=== PATIENT | female | born 1980 | race Caucasian/White ===

== ENCOUNTER 2021-10-28 23:35 | Emergency (ER) | payer SELFPAY ==
[2021-10-29] MEDS ORDERED: ACETAMINOPHEN 500 MG TAB ONE (00:08)
[2021-10-29 00:56] LABS: SARS-COV-2 RT PCR NEGATIVE (NEGATIVE)
[2021-10-29 01:23] LABS: Absolute Lymphocytes (CBC) 1.5 K/uL (0.7-4.9); Hematocrit 36.3 % (36.0-45.0); Lymphocytes % 11.7 % (15.3-44.8); MPV 9.1 fL (7.6-11.3); RBC Red Blood Cell Count 4.27 M/uL (3.86-4.86)
[2021-10-29 01:24] LABS: Protime INR 1.23
[2021-10-29] MEDS ORDERED: NA CHLORIDE 0.9% 2,000 ML ONE (01:25)
[2021-10-29] MEDS ORDERED: CEFTRIAXONE 1000 MG/VIAL ONE (01:35)
[2021-10-29] MEDS ORDERED: NA CHLORIDE 0.9% 50 ML ONE (01:36)
[2021-10-29 01:47] LABS: Urine Blood 2+ (Negative); Urine Glucose Negative (Negative); Urine Protein 2+ (Negative)
[2021-10-29 01:52] LABS: ALT/SGPT 85 U/L (12-78); AST/SGOT 42 U/L (15-37); Albumin 2.6 g/dL (3.4-5.0); Alkaline Phosphatase 182 U/L (45-117); Amylase 43 U/L (25-115); BUN Blood Urea Nitrogen 6 mg/dL (7-18); Bicarbonate 22 mmol/L (21-32); Bilirubin Direct 0.2 mg/dL (0-0.2); Bilirubin Total 0.5 mg/dL (0.2-1.0); Creatine Phosphokinase 24 U/L (26-192); Glucose Level 131 mg/dL (74-106); Lipase 96 U/L (73-393); Protein, Total 7.4 g/dL (6.4-8.2); Sodium Level 130 mmol/L (136-145)
[2021-10-29 01:53] LABS: CKMB Creatine Kinase MB < 1.0 ng/mL (1.0-3.6)
[2021-10-29 02:11] LABS: Urine Bacteria >50 /HPF (<20); Urine RBC <5 /HPF (NONE SEEN); Urine Urothelial Cells <5 /HPF (NONE SEEN)
[2021-10-29 02:15] LABS: Blood Morphology Comment NOT SEEN (NOT SEEN); Platelet Estimate ADEQ
--- NOTE | 2021-10-29 03:58 | EDPHYS ---
Physician Documentation [facility] Name: Nguyen Sepulveda Age: 41 yrs Sex: Female : 1980 Arrival Date: 10/28/2021 Time: 23:38 Bed 13 Private MD: ED Physician Ti Segura HPI: 10/29 03:44 This 41 yrs old Female presents to ER via Wheelchair with complaints of Head kdr Injury-Adult. 03:44 The patient or guardian reports pain. kdr 03:45 Patient states that she was hit on the head by a assembler metal building few days ago. She kdr indicated that she was working on a shelving project and had knelt down on the ground when the assembler metal building fell off the upper shelf hitting her in the head. She denies LOC. Since then she has had a headache and feels like the top of her head is going to pop off. She is also developed a febrile illness in the last few days.. Onset: The symptoms/episode began/occurred suddenly, 3 day(s) ago. Severity of symptoms: At their worst the symptoms were mild in the emergency department the symptoms are unchanged. The patient has not experienced similar symptoms in the past. Historical: - Allergies: 10/28 23:52 No Known Allergies; sm5 - Immunization history:: Client reports having NOT received the Covid vaccine. - Social history:: Smoking status: Patient reports the use of cigarette tobacco products, smokes one-half pack cigarettes per day. ROS: 10/29 03:45 Constitutional: Negative for objective fever, weight loss, she does states she has had kdr subjective fever and chills Eyes: Negative for injury, pain, redness, and discharge, Neck: Negative for injury, pain, and swelling, Cardiovascular: Negative for chest pain, palpitations, and edema, Respiratory: Negative for shortness of breath, cough, wheezing, and pleuritic chest pain, Abdomen/GI: Negative for abdominal pain, nausea, vomiting, diarrhea, and constipation, Back: Negative for injury and pain, : Negative for injury, bleeding, discharge, and swelling, MS/Extremity: Negative for injury and deformity, Skin: Negative for injury, rash, and discoloration. Neuro: Positive for headache, Negative for altered mental status, dizziness, gait disturbance, hearing loss, loss of consciousness, numbness, seizure activity, speech changes, syncope, near syncope, tingling, tremor, visual changes, weakness, acute changes. Exam: 03:04 ECG was reviewed by the Attending Physician. kdr 03:45 Head/Face: Normocephalic, atraumatic. Eyes: Pupils equal round and reactive to light, kdr extra-ocular motions intact. Lids and lashes normal. Conjunctiva and sclera are non-icteric and not injected. Cornea within normal limits. Periorbital areas with no swelling, redness, or edema. 03:45 Chest/axilla: Normal chest wall appearance and motion. Nontender with no deformity. No lesions are appreciated. Cardiovascular: Regular rate and rhythm with a normal S1 and S2. No gallops, murmurs, or rubs. Normal PMI, no JVD. No pulse deficits. Respiratory: Lungs have equal breath sounds bilaterally, clear to auscultation and percussion. No rales, rhonchi or wheezes noted. No increased work of breathing, no retractions or nasal flaring. Abdomen/GI: Soft, non-tender, with normal bowel sounds. No distension or tympany. No guarding or rebound. No evidence of tenderness throughout. Back: No spinal tenderness. No costovertebral tenderness. Full range of motion. Skin: Warm, dry with normal turgor. Normal color with no rashes, no lesions, and no evidence of cellulitis. MS/ Extremity: Pulses equal, no cyanosis. Neurovascular intact. Full, normal range of motion. Neuro: Awake and alert, GCS 15, oriented to person, place, time, and situation. Cranial nerves II-XII grossly intact. Motor strength 5/5 in all extremities. Sensory grossly intact. Cerebellar exam normal. Normal gait. Psych: Awake, alert, with orientation to person, place and time. Behavior, mood, and affect are within normal limits. 03:45 Constitutional: The patient appears awake, non-toxic, well developed, well nourished, febrile. Vital Signs: 10/28 23:50 BP 154 / 101; Pulse 132; Resp 20; Temp 100.3(O); Pulse Ox 99% on R/A; Weight 72.57 kg; sm5 Height 5 ft. 7 in. (170.18 cm); Pain 10/10; 10/29 00:07 BP 133 / 89 LA Supine (auto/reg); Pulse 121 MON; Resp 20 S; Temp 100.3(O); Pulse Ox 96% tk1 on R/A; Pain 8/10; 00:30 BP 141 / 89 LA Supine (auto/reg); Pulse 115 MON; Resp 20 S; Pulse Ox 96% on R/A; tk1 01:00 BP 126 / 85 LA Supine (auto/reg); Pulse 117 MON; Resp 18 S; Pulse Ox 96% ; tk1 01:27 BP 140 / 87 Supine (auto/reg); Pulse 109 MON; Resp 18 S; Temp 98.4(O); Pulse Ox 98% ; tk1 Pain 10/10; 02:00 BP 113 / 80 LA Supine (auto/reg); Pulse 107 MON; Resp 18 S; Pulse Ox 97% on R/A; tk1 02:30 BP 130 / 87 LA Supine (auto/reg); Pulse 96 MON; Resp 18 S; Pulse Ox 98% on R/A; tk1 03:46 BP 121 / 80 LA Supine (auto/reg); Pulse 102 MON; Resp 18 S; Temp 98.7(O); Pulse Ox 100% tk1 on R/A; 10/28 23:50 Body Mass Index 25.06 (72.57 kg, 170.18 cm) sm5 Kyle Coma Score: 10/28 23:50 Eye Response: spontaneous(4). Verbal Response: oriented(5). Motor Response: obeys sm5 commands(6). Total: 15. MDM: 10/29 03:43 Data reviewed: vital signs, nurses notes, lab test result(s), radiologic studies. kdr Counseling: I had a detailed discussion with the patient and/or guardian regarding: the historical points, exam findings, and any diagnostic results supporting the discharge/admit diagnosis, lab results, radiology results, the need for outpatient follow up. ED course: The patient states she is feeling much better.. 03:45 ED course: Patient was much improved and ambulated in the department without any kdr difficulty. She was happy with the care provided and the plan for discharge and follow-up. 03:57 Patient medically screened. kdr 10/28 23:51 Order name: COVID-19/FLU A+B (Document "Date of Onset" if Symptomatic); Complete Time: bb 01:05 10/29 00:51 Order name: Amylase, Serum kdr 10/29 00:51 Order name: Basic Metabolic Panel kdr 10/29 00:51 Order name: Blood Culture Adult (2) kdr 10/29 00:51 Order name: CBC with Diff kdr 10/29 00:51 Order name: CPK; Complete Time: 02:02 kdr 10/29 00:51 Order name: Ckmb; Complete Time: 02:02 kdr 10/29 00:51 Order name: LFT's; Complete Time: 02:02 kdr 10/29 00:51 Order name: Lactate; Complete Time: 02:02 kdr 10/29 00:51 Order name: Lipase; Complete Time: 02:02 kdr 10/29 00:51 Order name: Procalcitonin; Complete Time: 02:46 kdr 10/29 00:51 Order name: Protime (+inr); Complete Time: 02:02 kdr 10/29 00:51 Order name: Ptt, Activated; Complete Time: 02:02 kdr 10/29 00:51 Order name: Troponin HS; Complete Time: 02:02 kdr 10/28 23:51 Order name: CT Head Brain wo Cont bb 10/29 00:51 Order name: Urine Microscopic Only; Complete Time: 02:46 kdr 10/29 00:51 Order name: Chest Single View XRAY kdr 10/29 00:51 Order name: Accucheck; Complete Time: 01:12 kdr 10/29 00:51 Order name: Cardiac monitoring; Complete Time: 01:29 kdr 10/29 00:51 Order name: Amylase; Complete Time: 02:02 EDMS 10/29 00:51 Order name: Basic Metabolic Panel; Complete Time: 02:02 EDMS 10/29 00:51 Order name: Blood Culture EDMS 10/29 00:51 Order name: CBC with Automated Diff; Complete Time: 02:46 EDMS 10/29 01:26 Order name: Glucose, Ancillary Testing; Complete Time: 02:02 EDMS 10/29 01:36 Order name: Manual Differential; Complete Time: 02:46 EDMS 10/29 01:46 Order name: Urine Dipstick-Ancillary; Complete Time: 02:02 EDMS 10/29 02:12 Order name: Urine Culture EDMS 10/29 00:51 Order name: EKG - Nurse/Tech; Complete Time: 03:21 kdr 10/29 00:51 Order name: IV Saline Lock - Large Bore; Complete Time: kdr 10/29 00:51 Order name: Labs collected and sent; Complete Time: kdr 10/29 00:51 Order name: O2 Per Protocol; Complete Time: kdr 10/29 00:51 Order name: O2 Sat Monitoring; Complete Time: kdr 10/29 00:51 Order name: Urine Dipstick-Ancillary (obtain specimen); Complete Time: kdr EC:04 Rate is 104 beats/min. Rhythm is regular, Sinus tachycardia with No ectopy. QRS Percival is kdr Normal. MO interval is normal. QRS interval is normal. QT interval is normal. Clinical impression: NSR w/ Non-specific ST/T Changes and Sinus tachycardia. Administered Medications: 00:33 Drug: Tylenol 1000 mg Route: PO; tk1 01:27 Follow up: BP 140 / 87 Supine Left Arm Auto Regular; Pulse 109 bpm Monitor; Resp 18 bpm tk1 Spontaneous; Temp 98.4 Oral; Pulse Ox 98% ; Pain 10/10; Response: Temperature is decreased 01:11 Drug: NS 0.9% (30 ml/kg) 30 ml/kg Route: IV; Rate: bolus; Infused Over: 90 mins; Site: tk1 right forearm; Delivery: Primary tubing; 04:39 Follow up: Response: No adverse reaction; IV Status: Completed infusion; IV Intake: tk1 2000ml 01:35 Drug: Rocephin - (cefTRIAXone) 1 grams Route: IVPB; Rate: 100 ml/hr; Infused Over: 30 tk1 mins; Site: right forearm; Delivery: Primary tubing; 04:39 Follow up: Response: No adverse reaction; IV Status: Completed infusion; IV Intake: [id number] Disposition Summary: 10/29/21 03:57 Discharge Ordered Location: Home kdr Problem: new kdr Symptoms: have improved kdr Condition: Stable kdr Diagnosis - Unspecified injury of head, initial encounter kdr - Fever, unspecified kdr - UTI/ Urinary tract infection, site not specified kdr Followup: kdr - With: Private Physician - When: 2 - 3 days - Reason: If symptoms return, Further diagnostic work-up, Recheck today's complaints, Continuance of care, Re-evaluation by your physician Discharge Instructions: - Discharge Summary Sheet kdr - Urinary Tract Infection, Adult, [id number] kdr - Head Injury, Adult, [id number] kdr Forms: - Medication Reconciliation Form kdr - Thank You Letter kdr - Antibiotic Education kdr Prescriptions: - Depakote 125 mg Oral tablet,delayed release (DR/EC) - take 2 tablet by ORAL route once daily; 20 tablet; Refills: 0, Product kdr Selection Permitted - atorvastatin 40 mg Oral tablet - take 1 tablet by ORAL route once daily; 15 tablet; Refills: 0, Product kdr Selection Permitted - Prozac 20 mg Oral Capsule - take 1 capsule by ORAL route every 12 hours; 24 capsule; Refills: 0, Product kdr Selection Permitted - Bactrim DS 800-160 mg Oral Tablet - take 1 tablet by ORAL route every 12 hours for 7 days; 14 tablet; Refills: 0, kdr Product Selection Permitted Signatures: Dispatcher [employer] Ti Herzog MD MD kdr Ruma Calle, RE RN sm5 Carol Sears tk1 Casi Adler PA PA sb3
--- NOTE | 2021-10-29 03:58 | ER ---
Nurse's Notes [facility] Name: Nguyen Sepulveda Age: 41 yrs Sex: Female : 1980 Arrival Date: 10/28/2021 Time: 23:38 Bed 13 Private MD: Diagnosis: Unspecified injury of head, initial encounter;Fever, unspecified;UTI/ Urinary tract infection, site not specified Presentation: 10/28 23:50 Chief complaint: Patient states: a vishnu cell pourer fell on her head 3 days ago, sm5 ever since has been having a pulsating headache and fevers. no LOC, has been taking tyenol at home with some relief. Coronavirus screen: Vaccine status: Patient reports being unvaccinated. Ebola Screen: No symptoms or risks identified at this time. Mechanism of Injury: resulted from a direct blow, tool. Initial Sepsis Screen: Does the patient meet any 2 criteria? HR > 90 bpm. No. Patient's initial sepsis screen is negative. Does the patient have a suspected source of infection? No. Patient's initial sepsis screen is negative. Risk Assessment: Do you want to hurt yourself or someone else? Patient reports no desire to harm self or others. Onset of symptoms was October 25, 2021. 23:50 Method Of Arrival: Wheelchair [facility] 23:50 Acuity: LINO 3 sm5 Triage Assessment: 23:52 General: Appears uncomfortable, Behavior is anxious. Pain: Complains of pain in head. sm5 Neuro: No deficits noted. Level of Consciousness is awake, alert, obeys commands, Oriented to person, place, time, situation, Reports blurred vision headache. Cardiovascular: No deficits noted. Capillary refill < 3 seconds Patient's skin is warm and dry. Respiratory: No deficits noted. Airway is patent Trachea midline Respiratory effort is even, unlabored. Historical: - Allergies: 23:52 No Known Allergies; 5 - Immunization history:: Client reports having NOT received the Covid vaccine. - Social history:: Smoking status: Patient reports the use of cigarette tobacco products, smokes one-half pack cigarettes per day. Screenin/08 00:07 Abuse screen: Denies threats or abuse. Denies injuries from another. Nutritional tk1 screening: No deficits noted. Tuberculosis screening: No symptoms or risk factors identified. Fall Risk None identified. Assessment: 00:07 General: Appears uncomfortable, well groomed, well developed, well nourished, Behavior tk1 is cooperative, anxious. Pain: Complains of pain in top of head Pain does not radiate. Pain currently is 7 out of 10 on a pain scale. Quality of pain is described as aching, Pain began 2-3 days ago. Neuro: Level of Consciousness is awake, alert, obeys commands, Oriented to person, place, time, situation, Appropriate for age [employer]ary Lith[employer] Operator are equal bilaterally Moves all extremities. Gait is steady, Speech is normal, Pupils are PERRLA. Cardiovascular: Capillary refill < 3 seconds is brisk in bilateral fingers. Cardiovascular: Denies chest pain, Rhythm is sinus tachycardia. Respiratory: No deficits noted. Airway is patent Trachea midline Respiratory effort is even, unlabored, Respiratory pattern is regular, symmetrical. GI: No deficits noted. No signs and/or symptoms were reported involving the gastrointestinal system. : No deficits noted. No signs and/or symptoms were reported regarding the genitourinary system. EENT: No deficits noted. No signs and/or symptoms were reported regarding the EENT system. Derm: No deficits noted. No signs and/or symptoms reported regarding the dermatologic system. Musculoskeletal: No deficits noted. No signs and/or symptoms reported regarding the musculoskeletal system. 01:00 Reassessment: No changes from previously documented assessment. Patient and/or family tk1 updated on plan of care and expected duration. Pain level reassessed. Patient is alert, oriented x 3, equal unlabored respirations, skin warm/dry/pink. Sepsis alert called. Pain: Complains of pain in top of head Pain does not radiate. Pain currently is 7 out of 10 on a pain scale. Quality of pain is described as aching. 02:15 Reassessment: No changes from previously documented assessment. Patient and/or family tk1 updated on plan of care and expected duration. Pain level reassessed. Patient is alert, oriented x 3, equal unlabored respirations, skin warm/dry/pink. Pain: Complains of pain in top of head Pain currently is 5 out of 10 on a pain scale. 03:10 Reassessment: Patient and/or family updated on plan of care and expected duration. Pain tk1 level reassessed. 03:10 Pain: Complains of pain in top of head Pain currently is 2 out of 10 on a pain scale. tk1 03:47 Reassessment: Patient walked around pod 2 with difficulty or C/O. Dr. Segura updated. tk1 04:36 Reassessment: D/C per MD order. Discharge/Prescription instructions given to patient. tk1 Verbalized understanding. Vital Signs: 10/28 23:50 BP 154 / 101; Pulse 132; Resp 20; Temp 100.3(O); Pulse Ox 99% on R/A; Weight 72.57 kg; sm5 Height 5 ft. 7 in. (170.18 cm); Pain 10/10; 10/29 00:07 BP 133 / 89 LA Supine (auto/reg); Pulse 121 MON; Resp 20 S; Temp 100.3(O); Pulse Ox 96% tk1 on R/A; Pain 8/10; 00:30 BP 141 / 89 LA Supine (auto/reg); Pulse 115 MON; Resp 20 S; Pulse Ox 96% on R/A; tk1 01:00 BP 126 / 85 LA Supine (auto/reg); Pulse 117 MON; Resp 18 S; Pulse Ox 96% ; tk1 01:27 BP 140 / 87 Supine (auto/reg); Pulse 109 MON; Resp 18 S; Temp 98.4(O); Pulse Ox 98% ; tk1 Pain 10/10; 02:00 BP 113 / 80 LA Supine (auto/reg); Pulse 107 MON; Resp 18 S; Pulse Ox 97% on R/A; tk1 02:30 BP 130 / 87 LA Supine (auto/reg); Pulse 96 MON; Resp 18 S; Pulse Ox 98% on R/A; tk1 03:46 BP 121 / 80 LA Supine (auto/reg); Pulse 102 MON; Resp 18 S; Temp 98.7(O); Pulse Ox 100% tk1 on R/A; 10/28 23:50 Body Mass Index 25.06 (72.57 kg, 170.18 cm) sm5 Kyle Coma Score: 10/28 23:50 Eye Response: spontaneous(4). Verbal Response: oriented(5). Motor Response: obeys sm5 commands(6). Total: 15. ED Course: 23:38 Patient arrived in ED. es 23:50 Ti Segura MD is Attending Physician. kdr 23:52 Triage completed. 5 23:53 Carol Sears is Primary Nurse. tk1 23:53 Arm band placed on right wrist. sm5 23:55 COVID-19/FLU A+B (Document "Date of Onset" if Symptomatic) Sent. tk1 0308 00:07 Patient has correct armband on for positive identification. Bed in low position. Call tk1 light in reach. Side rails up X 1. Pulse ox on. NIBP on. 00:07 No provider procedures requiring assistance completed. tk1 00:29 CT Head Brain wo Cont In Process Unspecified. EDMS 01:00 Inserted saline lock: 18 gauge in right forearm, using aseptic technique. Blood tk1 collected. 01:07 Chest Single View XRAY In Process Unspecified. EDMS 01:28 CBC with Automated Diff Sent. tk1 01:28 Basic Metabolic Panel Sent. tk1 01:28 Blood Culture Sent. tk1 01:28 Amylase Sent. tk1 01:29 Amylase, Serum Sent. tk1 01:29 Basic Metabolic Panel Sent. tk1 01:29 Blood Culture Adult (2) Sent. tk1 01:29 CBC with Diff Sent. tk1 01:29 CPK Sent. tk1 01:29 Ckmb Sent. tk1 01:29 LFT's Sent. tk1 01:29 Lactate Sent. tk1 01:29 Lipase Sent. tk1 01:30 Procalcitonin Sent. tk1 01:30 Troponin HS Sent. tk1 01:30 Urine Microscopic Only Sent. tk1 04:00 IV discontinued, intact, bleeding controlled, No redness/swelling at site. Pressure tk1 dressing applied. Administered Medications: 00:33 Drug: Tylenol 1000 mg Route: PO; tk1 01:27 Follow up: BP 140 / 87 Supine Left Arm Auto Regular; Pulse 109 bpm Monitor; Resp 18 bpm tk1 Spontaneous; Temp 98.4 Oral; Pulse Ox 98% ; Pain 10/10; Response: Temperature is decreased 01:11 Drug: NS 0.9% (30 ml/kg) 30 ml/kg Route: IV; Rate: bolus; Infused Over: 90 mins; Site: tk1 right forearm; Delivery: Primary tubing; 04:39 Follow up: Response: No adverse reaction; IV Status: Completed infusion; IV Intake: tk1 2000ml 01:35 Drug: Rocephin - (cefTRIAXone) 1 grams Route: IVPB; Rate: 100 ml/hr; Infused Over: 30 tk1 mins; Site: right forearm; Delivery: Primary tubing; 04:39 Follow up: Response: No adverse reaction; IV Status: Completed infusion; IV Intake: [id number] Intake: 04:39 IV: 50ml; Total: 50ml. tk1 04:39 IV: 2000ml; Total: 2050ml. tk1 Outcome: 03:57 Discharge ordered by . kdr 04:00 Discharged to home ambulatory, with significant other. tk1 04:00 Condition: stable 04:00 Discharge instructions given to patient, significant other, Instructed on discharge instructions, follow up and referral plans. medication usage, Demonstrated understanding of instructions, follow-up care, medications, Prescriptions given X 4. 04:38 Patient left the ED. tk1 Signatures: Dispatcher [employer] Ti Herzog MD MD kdr Salyer, Edna es Mazur, Sarah RN RN [facility] Carol Sears tk1
[2021-10-29 04:53] VITALS: BP 121/80; TEMP 98.7; O2SAT 100
--- NOTE | 2021-10-29 08:26 | RAD REPORT ---
EXAM DESCRIPTION: RAD - Chest Single View - 10/29/2021 1:07 am CLINICAL HISTORY: FEVER Chest pain. COMPARISON: No comparisons FINDINGS: Portable technique limits examination quality. The lungs are grossly clear. The heart is normal in size. No displaced fractures. IMPRESSION: No acute intrathoracic process suspected.
--- NOTE | 2021-10-29 10:34 | RAD REPORT ---
EXAM DESCRIPTION: Head Brain Wo Cont CLINICAL HISTORY: 41-year-old female with pain and fever. COMPARISON: None. TECHNIQUE: CT brain without contrast. This exam was performed according to our departmental dose opt imization program which includes use of automated exposure control, adjustment of the mA and/or kV ac cording to patient size and/or use of iterative reconstruction technique. FINDINGS: The ventricles, sulci, and cisterns are within normal limits. The abbott-white matter diff erentiation is preserved. There is no mass effect, midline shift, intra- or extra-axial fluid colle ction/acute hemorrhage. The osseous structures are unremarkable. Trace secretions mucosal thicken ing present within the RIGHT sphenoid sinus. The paranasal sinuses and mastoid air cells are otherwis e clear. IMPRESSION: No acute intracranial abnormalities. Electronically signed by: Ruma Arango MD 10/29/2021 12:42 AM DIRECTOR OF ASSESSMENT Due to temporary technical issues with the PACS/Fluency reporting system, reports are being signed by the in house radiologists without review as a courtesy to insure prompt reporting. The interpreting radiologist is fully responsible for the content of the report.
--- NOTE | 2021-10-30 12:56 | EKG ---
Test Date: 2021-10-29 Test Time: 01:45:50 Derrick Builder: LIAM MEASUREMENT RESULTS: Intervals: Rate: 104 MA: 126 QRSD: 78 QT: 348 QTc: 457 Preston: P: 69 MA: 126 QRS: 76 T: 65 INTERPRETIVE STATEMENTS: Sinus tachycardia Possible Left atrial enlargement Borderline ECG No previous ECG available for comparison Electronically Signed On 10-30-21 12:52:24 CLAIM REP by Roland Rivera
== END 2021-10-29 04:38 | disposition home or self-care (01) ==
LOC: ER 23:35
DX: S09.90XA Unspecified injury of head, initial encounter (principal); W22.8XXA Striking against or struck by other objects, initial encounter; N39.0 Urinary tract infection, site not specified; R50.9 Fever, unspecified; F17.210 Nicotine dependence, cigarettes, uncomplicated; Z20.822 Contact with and (suspected) exposure to COVID-19
CPT/HCPCS: 0240U; 36415; 70450; 71045; 80048; 80076; 81003; 81015; 82150; 82550; 82553; 82947; 83605; 83690; 84145; 84484; 85025; 85610; 85730; 87040; 87077; 87086; 87088; 87186; 93005; 96365; 96366; 99284; J7030